=== PATIENT | male | born 1980 | race American Indian/Alaskan Native ===

== ENCOUNTER 2019-10-14 13:14 | Inpatient (IN) | payer OTHER ==
--- NOTE | 2019-10-14 13:24 | EDM.PDOC ---
ED HPI GENERAL MEDICAL PROBLEM - General Chief Complaint: General Stated Complaint: FEVER, KIDNEY PAIN, EXTREME THIRST Time Seen by Provider: 10/14/19 13:24 - History of Present Illness INITIAL COMMENTS - FREE TEXT/NARRATIVE: 39-year-old male presents the emergency room feeling severely dehydrated. The patient has been drinking lots of fluids and voiding excessively. He has some intermittent abdominal discomfort. This is been going on for the last couple of months is always present but sometimes varies in intensity. Patient is a strong family history of diabetes the patient is never been diagnosed with diabetes. Patient does not have any breathing difficulties shortness of breath or chest discomfort. Review of systems is not point to a precipitating factor. Bedside Accu-Chek is greater than 400. Bilateral Flank Pain Score (Numeric/FACES): 2 - Related Data Allergies Allergy/AdvReac Type Severity Reaction Status Date / Time Penicillins Allergy Rash Verified 10/14/19 14:08 ED ROS GENERAL - Review of Systems Review Of Systems: See Below Constitutional: Reports: Weakness, Fatigue, Other (States he felt hot last night but his temperature was normal on thermometer) HEENT: Reports: Throat Pain (Mild intermittent). Denies: No Symptoms Respiratory: Reports: No Symptoms Cardiovascular: Reports: No Symptoms Endocrine: Reports: Polydypsia, Polyuria GI/Abdominal: Reports: Abdominal Pain. Denies: Constipation, Diarrhea, Nausea, Vomiting : Reports: Frequency Musculoskeletal: Reports: No Symptoms Skin: Reports: No Symptoms Neurological: Reports: No Symptoms Psychiatric: Reports: No Symptoms Hematologic/Lymphatic: Reports: No Symptoms ED EXAM, GENERAL - Physical Exam Exam: See Below Exam Limited By: No Limitations General Appearance: Alert, No Apparent Distress, Other (Is mildly tachycardic shock index is mildly elevated at 1.74) Eye Exam: Bilateral Eye: Normal Inspection Ears: Normal External Exam, Normal Canal, Hearing Grossly Normal, Normal TMs Nose: Normal Inspection, Normal Mucosa, No Blood Throat/Mouth: Other (Significant tonsillar enlargement no significant erythema scant exudate) Head: Atraumatic, Normocephalic Neck: Normal Inspection, Supple, Non-Tender, Full Range of Motion Respiratory/Chest: No Respiratory Distress, Lungs Clear, Normal Breath Sounds Cardiovascular: Regular Rate, Rhythm, No Edema, No Murmur, Tachycardia (Held) GI/Abdominal: Normal Bowel Sounds, Soft, Non-Tender, Other (obese) Back Exam: Normal Inspection. 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PC] Stat Care 10/14/19 15:58 Ordered Intake and Output [RC] Q3HR Care 10/14/19 16:01 Active Oxygen Therapy [RC] PRN Care 10/14/19 15:58 Active Pulse Oximetry [RC] CONTINUOUS Care 10/14/19 16:01 Active Urinary Catheter Assessment [RC] ASDIRECTED Care 10/14/19 16:00 Active VTE/DVT Education [RC] PER UNIT ROUTINE Care 10/14/19 15:58 Active Vital Signs [RC] Q1HR Care 10/14/19 15:58 Active Consult to Diabetic Nurse Specialist [CONS] Routine Cons 10/14/19 15:58 Active Consult to Certified Personal Finance Counselor [CONS] Routine Cons 10/14/19 15:58 Active Respiratory Care Assess and Treatment [CONS] Routine Cons 10/14/19 15:58 Active Nothing Per Oral Diet [DIET] Diet 10/14/19 Breakfast Active Chest 1V Frontal [CR] Stat Exams 10/14/19 13:45 Taken BASIC METABOLIC PANEL,BMP [CHEM] Q4H Lab 10/14/19 15:58 Ordered BASIC METABOLIC PANEL,BMP [CHEM] Q4H Lab 10/14/19 20:00 Ordered BASIC METABOLIC PANEL,BMP [CHEM] Q4H Lab 10/15/19 00:00 Ordered BASIC METABOLIC PANEL,BMP [CHEM] Q4 Lab 10/15/19 04:00 Ordered BASIC METABOLIC PANEL,BMP [CHEM] Q4 Lab 10/15/19 08:00 Ordered BASIC METABOLIC PANEL,BMP [CHEM] Q4 Lab 10/15/19 12:00 Ordered BLOOD GAS ARTERIAL [BG] DAILY Lab 10/14/19 16:00 Ordered CBC WITH AUTO DIFF [HEME] AM Lab 10/15/19 05:11 Ordered CBC WITH AUTO DIFF [HEME] AM Lab 10/16/19 05:11 Ordered CBC WITH AUTO DIFF [HEME] AM Lab 10/17/19 05:11 Ordered CBC WITH AUTO DIFF [HEME] AM Lab 10/18/19 05:11 Ordered CBC WITH AUTO DIFF [HEME] Stat Lab 10/14/19 15:58 Ordered CULTURE STREP A CONFIRMATION [RM] Stat Lab 10/14/19 14:45 Results GLYCOSYLATED HEMOGLOBIN,HGBA1C [CHEM] Stat Lab 10/14/19 15:58 Ordered KETONES,BLOOD [CHEM] Q8 Lab 10/14/19 16:00 Ordered KETONES,BLOOD [CHEM] 8 Lab 10/15/19 00:00 Ordered KETONES,BLOOD [CHEM] 8 Lab 10/15/19 08:00 Ordered LIPID PANEL [CHEM] Stat Lab 10/14/19 15:58 Ordered MAGNESIUM [CHEM] 4 Lab 10/14/19 16:00 Ordered MAGNESIUM [CHEM] Formerly [facility] Lab 10/14/19 20:00 Ordered MAGNESIUM [CHEM] Former[facility] Lab 10/15/19 00:00 Ordered MAGNESIUM [CHEM] Formerly [facility] Lab 10/15/19 04:00 Ordered MAGNESIUM [CHEM] Formerly [facility] Lab 10/15/19 08:00 Ordered MAGNESIUM [CHEM] 4 Lab 10/15/19 12:00 Ordered PHOSPHORUS [CHEM] Formerly [facility] Lab 10/14/19 16:00 Ordered PHOSPHORUS [CHEM] Formerly [facility] Lab 10/14/19 20:00 Ordered PHOSPHORUS [CHEM] Formerly [facility] Lab 10/15/19 00:00 Ordered PHOSPHORUS [CHEM] Formerly [facility] Lab 10/15/19 04:00 Ordered PHOSPHORUS [CHEM] Formerly [facility] Lab 10/15/19 08:00 Ordered PHOSPHORUS [CHEM] Formerly [facility] Lab 10/15/19 12:00 Ordered Rapid Strep w/culture conf [STREP SCRN A RAPID W CULT Lab 10/14/19 14:45 Results CONF] [RM] Stat UA W/JIA RFLX IF INDICATED [URIN] Routine Lab 10/14/19 15:58 Ordered Dextrose 10% in Water 1,000 ml Med 10/14/19 16:00 Active IV ASDIRECTED Enoxaparin [Lovenox] Med 10/15/19 09:00 Active 40 mg SUBCUT DAILY Insulin Regular, Human [HumuLIN R] 100 unit Med 10/14/19 16:00 Active Sodium Chloride 0.9% [Normal Saline] 99 ml IV TITRATE Lactated Ringers [Ringers, Lactated] 1,000 ml Med 10/14/19 16:00 Active IV ASDIRECTED Lactated Ringers [Ringers, Lactated] 1,000 ml Med 10/14/19 16:00 Active IV ASDIRECTED Ondansetron [Zofran ODT] Med 10/14/19 15:58 Active 4 mg PO Q6H PRN Ondansetron [Zofran] Med 10/14/19 15:58 Active 4 mg IV Q6H PRN Resuscitation Status Routine Resus Stat 10/14/19 15:58 Ordered Medication Orders Enoxaparin Sodium (Lovenox) 40 mg SUBCUT DAILY KEI Dextrose/Water (Dextrose 10% In Water) 1,000 mls @ 40 mls/hr IV ASDIRECTED KEI Stop: 10/15/19 17:01 Insulin Human Regular 100 unit (/ Sodium Chloride) 100 mls @ 10.79 mls/hr IV TITRATE KEI; Protocol Lactated Ringer's (Ringers, Lactated) 1,000 mls @ 150 mls/hr IV ASDIRECTED KEI Lactated Ringer's (Ringers, Lactated) 1,000 mls @ 999 mls/hr IV ASDIRECTED KEI Stop: 10/15/19 17:01 Ondansetron HCl (Zofran Odt) 4 mg PO Q6H PRN PRN Reason: nausea, able to take PO Ondansetron HCl (Zofran) 4 mg IV Q6H PRN PRN Reason: Nausea/Vomiting Labs: Laboratory Tests 10/14/19 10/14/19 10/14/19 Range/Units 13:45 13:45 13:45 WBC (4.23-9.07) K/mm3 RBC (4.63-6.08) M/mm3 Hgb (13.7-17.5) gm/dl Hct (40.1-51.0) % MCV (79.0-92.2) fl MCH (25.7-32.2) pg MCHC (32.2-35.5) g/dl RDW Std Deviation (35.1-43.9) fL Plt Count (163-337) K/mm3 MPV (9.4-12.3) fl Neut % (Auto) (34.0-67.9) % Lymph % (Auto) (21.8-53.1) % [place] % (Auto) (5.3-12.2) % Eos % (Auto) (0.8-7.0) Baso % (Auto) (0.1-1.2) % Neut # (Auto) (1.78-5.38) K/mm3 Lymph # (Auto) (1.32-3.57) K/mm3 [place] # (Auto) (0.30-0.82) K/mm3 Eos # (Auto) (0.04-0.54) K/mm3 Baso # (Auto) (0.01-0.08) K/mm3 Manual Slide Review Puncture Site ABG pH (7.35-7.45) ABG pCO2 (35.0-45.0) mmHg ABG pO2 (80.0-100.0) mmHg ABG HCO3 (22.0-26.0) meq/L ABG O2 Saturation (96.0-97.0) % ABG Base Excess (-2-2.0) [place] Test O2 Delivery Device FiO2 (21.00-100.00) % Sodium 133 L (136-145) mEq/L Potassium 3.9 (3.5-5.1) mEq/L Chloride 97 L (98-107) mEq/L Carbon Dioxide 17 L (21-32) mEq/L Anion Gap 22.9 H (5-15) BUN 9 (7-18) mg/dL Creatinine 1.1 (0.7-1.3) mg/dL Est Cr Clr Drug Dosing 94.02 mL/min Estimated GFR (MDRD) > 60 (>60) mL/min BUN/Creatinine Ratio 8.2 L (14-18) Glucose 408 H (74-106) mg/dL POC Glucose (70-105) mg/dL Hemoglobin A1c (4.50-6.20) % Lactic Acid 1.7 (0.4-2.0) mmol/L Calcium 9.3 (8.5-10.1) mg/dL Phosphorus (2.6-4.7) mg/dL Magnesium (1.8-2.4) mg/dl Total Bilirubin 0.6 (0.2-1.0) mg/dL AST 47 H (15-37) U/L ALT 34 (16-63) U/L Alkaline Phosphatase 144 H (46-116) U/L Total Protein 8.9 H (6.4-8.2) g/dl Albumin 3.5 (3.4-5.0) g/dl Globulin 5.4 gm/dL Albumin/Globulin Ratio 0.7 L (1-2) Urine Color (Yellow) Urine Appearance (Clear) Urine pH (5.0-8.0) Ur Specific [place] (1.005-1.030) Urine Protein (Negative) Urine Glucose (UA) (Negative) Urine Ketones (Negative) Urine Occult Blood (Negative) Urine Nitrite (Negative) Urine Bilirubin (Negative) Urine Urobilinogen (0.2-1.0) Ur Leukocyte Esterase (Negative) Urine RBC (0-5) /hpf Urine WBC (0-5) /hpf Ur Squamous Epith Cells (0-5) /hpf Urine Bacteria (FEW) /hpf Urine Mucus (FEW) /hpf Ketones 3.67 (0.0-0.3) mM 10/14/19 10/14/19 10/14/19 Range/Units 13:45 13:45 13:45 WBC 6.72 (4.23-9.07) K/mm3 RBC 5.84 (4.63-6.08) M/mm3 Hgb 15.5 (13.7-17.5) gm/dl Hct 46.1 (40.1-51.0) % MCV 78.9 L (79.0-92.2) fl MCH 26.5 (25.7-32.2) pg MCHC 33.6 (32.2-35.5) g/dl RDW Std Deviation 42.7 (35.1-43.9) fL Plt Count 198 (163-337) K/mm3 MPV 11.6 (9.4-12.3) fl Neut % (Auto) 56.5 (34.0-67.9) % Lymph % (Auto) 25.4 (21.8-53.1) % [place] % (Auto) 16.8 H (5.3-12.2) % Eos % (Auto) 0.1 L (0.8-7.0) Baso % (Auto) 0.6 (0.1-1.2) % Neut # (Auto) 3.79 (1.78-5.38) K/mm3 Lymph # (Auto) 1.71 (1.32-3.57) K/mm3 [place] # (Auto) 1.13 H (0.30-0.82) K/mm3 Eos # (Auto) 0.01 L (0.04-0.54) K/mm3 Baso # (Auto) 0.04 (0.01-0.08) K/mm3 Manual Slide Review Abnormal smear Puncture Site ABG pH (7.35-7.45) ABG pCO2 (35.0-45.0) mmHg ABG pO2 (80.0-100.0) mmHg ABG HCO3 (22.0-26.0) meq/L ABG O2 Saturation (96.0-97.0) % ABG Base Excess (-2-2.0) Weston Test O2 Delivery Device FiO2 (21.00-100.00) % Sodium (136-145) mEq/L Potassium (3.5-5.1) mEq/L Chloride (98-107) mEq/L Carbon Dioxide (21-32) mEq/L Anion Gap (5-15) BUN (7-18) mg/dL Creatinine (0.7-1.3) mg/dL Est Cr Clr Drug Dosing mL/min Estimated GFR (MDRD) (>60) mL/min BUN/Creatinine Ratio (14-18) Glucose (74-106) mg/dL POC Glucose (70-105) mg/dL Hemoglobin A1c 11.40 H (4.50-6.20) % Lactic Acid (0.4-2.0) mmol/L Calcium (8.5-10.1) mg/dL Phosphorus 3.7 (2.6-4.7) mg/dL Magnesium 2.0 (1.8-2.4) mg/dl Total Bilirubin (0.2-1.0) mg/dL AST (15-37) U/L ALT (16-63) U/L Alkaline Phosphatase (46-116) U/L Total Protein (6.4-8.2) g/dl Albumin (3.4-5.0) g/dl Globulin gm/dL Albumin/Globulin Ratio (1-2) Urine Color (Yellow) Urine Appearance (Clear) Urine pH (5.0-8.0) Ur Specific [place] (1.005-1.030) Urine Protein (Negative) Urine Glucose (UA) (Negative) Urine Ketones (Negative) Urine Occult Blood (Negative) Urine Nitrite (Negative) Urine Bilirubin (Negative) Urine Urobilinogen (0.2-1.0) Ur Leukocyte Esterase (Negative) Urine RBC (0-5) /hpf Urine WBC (0-5) /hpf Ur Squamous Epith Cells (0-5) /hpf Urine Bacteria (FEW) /hpf Urine Mucus (FEW) /hpf Ketones (0.0-0.3) mM 10/14/19 10/14/19 10/14/19 Range/Units 13:48 14:12 14:43 WBC (4.23-9.07) K/mm3 RBC (4.63-6.08) M/mm3 Hgb (13.7-17.5) gm/dl Hct (40.1-51.0) % MCV (79.0-92.2) fl MCH (25.7-32.2) pg MCHC (32.2-35.5) g/dl RDW Std Deviation (35.1-43.9) fL Plt Count (163-337) K/mm3 MPV (9.4-12.3) fl Neut % (Auto) (34.0-67.9) % Lymph % (Auto) (21.8-53.1) % [place] % (Auto) (5.3-12.2) % Eos % (Auto) (0.8-7.0) Baso % (Auto) (0.1-1.2) % Neut # (Auto) (1.78-5.38) K/mm3 Lymph # (Auto) (1.32-3.57) K/mm3 [place] # (Auto) (0.30-0.82) K/mm3 Eos # (Auto) (0.04-0.54) K/mm3 Baso # (Auto) (0.01-0.08) K/mm3 Manual Slide Review Puncture Site Lt radial ABG pH 7.37 (7.35-7.45) ABG pCO2 27.4 L (35.0-45.0) mmHg ABG pO2 65.0 L (80.0-100.0) mmHg ABG HCO3 15.3 L (22.0-26.0) meq/L ABG O2 Saturation 94.7 L (96.0-97.0) % ABG Base Excess -8.0 L (-2-2.0) [place]on Test Positive O2 Delivery Device Room air FiO2 0.00 L (21.00-100.00) % Sodium (136-145) mEq/L Potassium (3.5-5.1) mEq/L Chloride (98-107) mEq/L Carbon Dioxide (21-32) mEq/L Anion Gap (5-15) BUN (7-18) mg/dL Creatinine (0.7-1.3) mg/dL Est Cr Clr Drug Dosing mL/min Estimated GFR (MDRD) (>60) mL/min BUN/Creatinine Ratio (14-18) Glucose (74-106) mg/dL POC Glucose 335 H (70-105) mg/dL Hemoglobin A1c (4.50-6.20) % Lactic Acid (0.4-2.0) mmol/L Calcium (8.5-10.1) mg/dL Phosphorus (2.6-4.7) mg/dL Magnesium (1.8-2.4) mg/dl Total Bilirubin (0.2-1.0) mg/dL AST (15-37) U/L ALT (16-63) U/L Alkaline Phosphatase (46-116) U/L Total Protein (6.4-8.2) g/dl Albumin (3.4-5.0) g/dl Globulin gm/dL Albumin/Globulin Ratio (1-2) Urine Color Light yellow (Yellow) Urine Appearance Clear (Clear) Urine pH 5.5 (5.0-8.0) Ur Specific [place] 1.025 (1.005-1.030) Urine Protein Negative (Negative) Urine Glucose (UA) 2+ H (Negative) Urine Ketones 3+ H (Negative) Urine Occult Blood Negative (Negative) Urine Nitrite Negative (Negative) Urine Bilirubin Negative (Negative) Urine Urobilinogen 0.2 (0.2-1.0) Ur Leukocyte Esterase Negative (Negative) Urine RBC 0-5 (0-5) /hpf Urine WBC 0-5 (0-5) /hpf Ur Squamous Epith Cells 0-5 (0-5) /hpf Urine Bacteria Occasional (FEW) /hpf Urine Mucus Few (FEW) /hpf Ketones (0.0-0.3) mM 10/14/19 10/14/19 Range/Units 15:16 15:46 WBC (4.23-9.07) K/mm3 RBC (4.63-6.08) M/mm3 Hgb (13.7-17.5) gm/dl Hct (40.1-51.0) % MCV (79.0-92.2) fl MCH (25.7-32.2) pg MCHC (32.2-35.5) g/dl RDW Std Deviation (35.1-43.9) fL Plt Count (163-337) K/mm3 MPV (9.4-12.3) fl Neut % (Auto) (34.0-67.9) % Lymph % (Auto) (21.8-53.1) % [place] % (Auto) (5.3-12.2) % Eos % (Auto) (0.8-7.0) Baso % (Auto) (0.1-1.2) % Neut # (Auto) (1.78-5.38) K/mm3 Lymph # (Auto) (1.32-3.57) K/mm3 [place] # (Auto) (0.30-0.82) K/mm3 Eos # (Auto) (0.04-0.54) K/mm3 Baso # (Auto) (0.01-0.08) K/mm3 Manual Slide Review Puncture Site ABG pH (7.35-7.45) ABG pCO2 (35.0-45.0) mmHg ABG pO2 (80.0-100.0) mmHg ABG HCO3 (22.0-26.0) meq/L ABG O2 Saturation (96.0-97.0) % ABG Base Excess (-2-2.0) [place] Test O2 Delivery Device FiO2 (21.00-100.00) % Sodium (136-145) mEq/L Potassium (3.5-5.1) mEq/L Chloride (98-107) mEq/L Carbon Dioxide (21-32) mEq/L Anion Gap (5-15) BUN (7-18) mg/dL Creatinine (0.7-1.3) mg/dL Est Cr Clr Drug Dosing mL/min Estimated GFR (MDRD) (>60) mL/min BUN/Creatinine Ratio (14-18) Glucose (74-106) mg/dL POC Glucose 318 H 307 H (70-105) mg/dL Hemoglobin A1c (4.50-6.20) % Lactic Acid (0.4-2.0) mmol/L Calcium (8.5-10.1) mg/dL Phosphorus (2.6-4.7) mg/dL Magnesium (1.8-2.4) mg/dl Total Bilirubin (0.2-1.0) mg/dL AST (15-37) U/L ALT (16-63) U/L Alkaline Phosphatase (46-116) U/L Total Protein (6.4-8.2) g/dl Albumin (3.4-5.0) g/dl Globulin gm/dL Albumin/Globulin Ratio (1-2) Urine Color (Yellow) Urine Appearance (Clear) Urine pH (5.0-8.0) Ur Specific [place] (1.005-1.030) Urine Protein (Negative) Urine Glucose (UA) (Negative) Urine Ketones (Negative) Urine Occult Blood (Negative) Urine Nitrite (Negative) Urine Bilirubin (Negative) Urine Urobilinogen (0.2-1.0) Ur Leukocyte Esterase (Negative) Urine RBC (0-5) /hpf Urine WBC (0-5) /hpf Ur Squamous Epith Cells (0-5) /hpf Urine Bacteria (FEW) /hpf Urine Mucus (FEW) /hpf Ketones (0.0-0.3) mM Meds: Medications Generic Name Dose Route Start Last Admin Trade Name Freq PRN Reason Stop Dose Admin Enoxaparin Sodium 40 mg 10/15/19 09:00 Lovenox SUBCUT DAILY KEI Dextrose/Water 1,000 mls @ 40 mls/hr 10/14/19 16:00 Dextrose 10% In Water IV 10/15/19 17:01 ASDIRECTED [facility] Insulin Human Regular 100 unit 100 mls @ 10.79 mls/hr 10/14/19 16:00 / Sodium Chloride IV TITRATE KEI Protocol 0.1 UNITS/KG/HR Lactated Ringer's 1,000 mls @ 150 mls/hr 10/14/19 16:00 Ringers, Lactated IV ASDIRECTED KEI Lactated Ringer's 1,000 mls @ 999 mls/hr 10/14/19 16:00 Ringers, Lactated IV 10/15/19 17:01 ASDIRECTED KEI Ondansetron HCl 4 mg 10/14/19 15:58 Zofran Odt PO Q6H PRN nausea, able to take PO Ondansetron HCl 4 mg 10/14/19 15:58 Zofran IV Q6H PRN Nausea/Vomiting Discontinued Medications Generic Name Dose Route Start Last Admin Trade Name Freq PRN Reason Stop Dose Admin Sodium Chloride 1,000 mls @ 999 mls/hr 10/14/19 13:50 10/14/19 14:07 Normal Saline IV 10/14/19 14:50 999 mls/hr ONETIME ONE Administration Sodium Chloride 1,000 mls @ 999 mls/hr 10/14/19 14:18 10/14/19 15:06 Normal Saline IV 10/14/19 15:18 999 mls/hr ONETIME ONE Administration Insulin Human Regular 10 unit 10/14/19 13:57 10/14/19 14:07 Humulin R IV 10/14/19 13:58 10 unit ONETIME ONE Administration - Re-Assessments/Exams Free Text/Narrative Re-Assessment/Exam: 10/14/19 16:23 Patient's case reviewed with Dr. Li who will assume care of the patient received IV fluids here in the emergency department labs ordered 10 units of regular insulin and routine labs for the situation the patient will be placed on admission for treatment of this Departure - Departure Time of Disposition: 16:25 Disposition: Admitted As Inpatient 67 Clinical Impression: Diabetes - Discharge Information Referrals: PCP,None [Primary Care Provider] - Forms: ED Department Discharge Sepsis Event Note - Focused Exam Vital Signs: Vital Signs Temp Pulse Pulse Resp BP BP Pulse Ox 10/14/19 16:16 94 120/74 97 10/14/19 16:15 87 99 10/14/19 16:01 95 131/85 97 10/14/19 16:00 82 97 10/14/19 15:46 91 131/80 97 10/14/19 15:45 89 96 10/14/19 15:31 90 121/84 97 10/14/19 15:30 95 96 10/14/19 15:16 91 120/83 96 10/14/19 15:15 87 96 10/14/19 15:01 97 131/98 H 98 10/14/19 15:00 92 96 10/14/19 14:46 101 H 127/91 H 97 10/14/19 14:45 96 97 10/14/19 14:31 105 H 124/95 H 95 10/14/19 14:30 101 H 96 10/14/19 14:16 100 136/96 H 96 10/14/19 14:15 100 97 10/14/19 14:00 99 97 10/14/19 13:47 98 124/99 H 96 10/14/19 13:46 107 H 97 10/14/19 13:45 95 96 10/14/19 13:42 98 96 10/14/19 13:25 36.9 C 104 H 20 140/107 H 97 Date Exam was Performed: 10/14/19 Time Exam was Performed: 16:23 - My Orders Last 24 Hours: My Active Orders 10/14/19 13:35 Blood Glucose Check, Bedside [RC] ONETIME 10/14/19 13:45 Chest 1V Frontal [CR] Stat 10/14/19 14:45 CULTURE STREP A CONFIRMATION [RM] Stat Rapid Strep w/culture conf [STREP SCRN A RAPID W CULT CONF] [] Stat - Assessment/Plan Last 24 Hours: My Active Orders 10/14/19 13:35 Blood Glucose Check, Bedside [RC] ONETIME 10/14/19 13:45 Chest 1V Frontal [CR] Stat 10/14/19 14:45 CULTURE STREP A CONFIRMATION [RM] Stat Rapid Strep w/culture conf [STREP SCRN A RAPID W CULT CONF] [] Stat
[2019-10-14] MEDS ORDERED: Sodium Chloride 0.9% 1,000 ML IV ONE ×2 (13:50→14:18)
[2019-10-14] MEDS ORDERED: Insulin Regular, Human 100 Units/ML 3 ML Vial IV ONE (13:57)
[2019-10-14 14:17] LABS: HEMOGLOBIN A1C 11.4 % (4.50-6.20)
[2019-10-14] MEDS ORDERED: Ondansetron 4 MG/2 ML SDV IV PRN (15:58)
[2019-10-14] MEDS ORDERED: Ondansetron 4 MG Tab.DIS PO PRN (15:58)
[2019-10-14] MEDS ORDERED: Lactated Ringers 1,000 ML IV SCH (16:00)
[2019-10-14] MEDS ORDERED: Dextrose 10% in Water 1,000 ML IV SCH (16:00)
[2019-10-14] MEDS: Lactated Ringers 1,000 ML IV SCH (18:49)
--- NOTE | 2019-10-14 20:01 | PCM.HP.2 ---
H&P History of Present Illness - General Date of Service: 10/14/19 Admit Problem/Dx: Admission Diagnosis/Problem Admission Diagnosis/Problem Diabetic ketoacidosis without coma - History of Present Illness Initial Comments - Free Text/Narative: This is a 39-year-old male without any past medical history who comes to the ED complaining of worsening polydipsia and polyuria for the past 2 months. As per patient around 2 months ago he started having polydipsia which eventually was associated to polyuria. This continued to get worse and was associated with worsening weight loss of approximately 50lbs as well as sensation of "being drunk". He decided to come in today after being convinced by daughters. Bilateral Flank Pain Score (Numeric/FACES): 0 - Related Data Allergies/Adverse Reactions: Allergies Allergy/AdvReac Type Severity Reaction Status Date / Time Penicillins Allergy Rash Verified 10/14/19 14:08 Past Medical History - Past Health History Medical/Surgical History: Denies Medical/Surgical History Musculoskeletal History: Reports: Back Pain, Chronic, Other (See Below) Other Musculoskeletal History: degenerated disc - Past Surgical History GI Surgical History: Reports: Cholecystectomy Social & Family History - Family History Endocrine/Metabolic: Reports: Diabetes, type II - Tobacco Use Smoking Status *Q: Never Smoker - Caffeine Use Caffeine Use: Reports: Soda - Recreational Drug Use Recreational Drug Use: No H&P Review of Systems - Review of Systems: Review Of Systems: See Below General: Reports: Malaise, Weakness, Fatigue. Denies: Fever, Chills, Night Sweats, Diaphoresis HEENT: Denies: Headaches, Post Nasal Drip, Sinus Congestion, Sore Throat, Vertigo Pulmonary: Denies: Shortness of Breath, Wheezing, Pleuritic Chest Pain, Cough, Sputum Cardiovascular: Denies: Chest Pain, Palpitations, Dyspnea on Exertion, Orthopnea , PND, Edema, Lightheadedness, Syncope Gastrointestinal: Reports: Anorexia, Decreased Appetite. Denies: Abdominal Pain , Black Stool, Bloody Stool, Constipation, Diarrhea, Difficulty Swallowing, Distension, Flatus Genitourinary: Reports: Frequency. Denies: Dysuria, Burning, Pain, Urgency, Incontinence, Hematuria Musculoskeletal: Denies: Joint Pain, Joint Swelling, Muscle Pain, Muscle Stiffness Skin: Denies: Cyanosis, Jaundice, Mottled, Pallor, Diaphoresis Psychiatric: Denies: Confusion, Depression, Mood Lability, Anxiety, Agitation Neurological: Denies: Confusion, Dizziness, Headache, Numbness Hematologic/Lymphatic: Denies: Anemia, Easy Bleeding Exam - Exam Exam: See Below - Vital Signs Vital Signs: Last Vital Signs Temp 98.7 F 10/14/19 17:30 Pulse 84 10/14/19 17:46 Resp 16 10/14/19 17:30 BP 146/90 H 10/14/19 17:46 Pulse Ox 96 10/14/19 17:46 Weight: 110.949 kg - Exam General: Alert, Oriented, Cooperative. No: Mild Distress HEENT: Conjunctiva Clear, EACs Clear, EOMI, Hearing Intact. No: Mucosa Moist & [place] Neck: Supple, Trachea Midline, +2 Carotid Pulse wo Bruit, Full Range of Motion. No: Lymphadenopathy Lungs: Clear to Auscultation, Normal Respiratory Effort. No: Crackles, Rales, Rhonchi, Rub, Wheezing Cardiovascular: Regular Rate, Regular Rhythm. No: Systolic Murmur, Diastolic Murmur, Rubs, Gallop/S3, Gallop/S4 GI/Abdominal Exam: Normal Bowel Sounds, Soft, Non-Tender, No Organomegaly, No Distention. No: Guarding, Rigid, Rebound Back Exam: Normal Inspection, Full Range of Motion. No: CVA Tenderness (L), CVA Tenderness (R) Extremities: Normal Inspection, Normal Range of Motion, Non-Tender, No Pedal Edema, Normal Capillary Refill Peripheral Pulses: 2+: Radial (L), Radial (R), Dorsalis Pedis (L), Dorsalis Pedis (R) Skin: Warm, Dry Neuro Extensive - Mental Status: Alert, Oriented x3 - Patient Data Result Diagrams: 10/14/19 13:45 10/14/19 13:45 Sepsis Event Note - Evaluation Sepsis Screening Result: No Definite Risk - Focused Exam Vital Signs: Vital Signs Temp Pulse Pulse Resp BP BP Pulse Ox 10/14/19 17:46 84 146/90 H 96 10/14/19 17:45 80 96 10/14/19 17:31 85 145/90 H 97 10/14/19 17:30 98.7 F 81 16 133/90 97 10/14/19 17:16 84 147/92 H 96 10/14/19 17:15 80 97 10/14/19 17:01 86 145/104 H 96 10/14/19 17:00 98.2 F 86 85 16 133/90 95 10/14/19 16:46 91 128/87 97 10/14/19 16:45 89 97 10/14/19 16:31 95 132/85 96 10/14/19 16:30 85 95 10/14/19 16:16 94 120/74 97 10/14/19 16:15 87 99 10/14/19 16:01 95 131/85 97 10/14/19 16:00 82 97 10/14/19 15:46 91 131/80 97 10/14/19 15:45 89 96 10/14/19 15:31 90 121/84 97 10/14/19 15:30 95 96 10/14/19 15:16 91 120/83 96 10/14/19 15:15 87 96 10/14/19 15:01 97 131/98 H 98 10/14/19 15:00 92 96 10/14/19 14:46 101 H 127/91 H 97 10/14/19 14:45 96 97 10/14/19 14:31 105 H 124/95 H 95 10/14/19 14:30 101 H 96 10/14/19 14:16 100 136/96 H 96 10/14/19 14:15 100 97 10/14/19 14:00 99 97 10/14/19 13:47 98 124/99 H 96 10/14/19 13:46 107 H 97 10/14/19 13:45 95 96 10/14/19 13:42 98 96 10/14/19 13:25 98.4 F 104 H 20 140/107 H 97 Date Exam was Performed: 10/14/19 Time Exam was Performed: 20:13 - Problem List (1) High anion gap metabolic acidosis SNOMED Code(s): 88251371 ICD Code: E87.2 - ACIDOSIS Status: Acute Current Visit: Yes (2) Hyperglycemia SNOMED Code(s): 76501977 ICD Code: R73.9 - HYPERGLYCEMIA, UNSPECIFIED Status: Acute Current Visit : Yes (3) Newly diagnosed diabetes SNOMED Code(s): 259918812, 102319444 ICD Code: E11.9 - TYPE 2 DIABETES MELLITUS WITHOUT COMPLICATIONS Status: Acute Current Visit: Yes (4) Elevated blood pressure reading SNOMED Code(s): 10224812 ICD Code: R03.0 - ELEVATED BLOOD-PRESSURE READING, W/O DIAGNOSIS OF HTN Status: Acute Current Visit: Yes (5) Ketonemia SNOMED Code(s): 514814460 ICD Code: R79.89 - OTHER SPECIFIED ABNORMAL FINDINGS OF BLOOD CHEMISTRY Status: Acute Current Visit: Yes (6) Respiratory alkalosis SNOMED Code(s): 402613255 ICD Code: E87.3 - ALKALOSIS Status: Acute Current Visit: Yes Problem List Initiated/Reviewed/Updated: Yes Assessment/Plan Comment:: Diabetic Ketoacidosis High anion gap metabolic acidosis Hyperglycemia Newly diagnosed diabetes mellitus, HbA1c 11.7 Respiratory alkalosis Worsening polydipsia and polyuria Never been seen by an MD PLAN - Insulin Drip - LR - Accu-checks q1h - BMP + Mg + PO4 every 4 hours - Ketones in blood every 8 hours - Daily ABGs - Stop insulin drip once anion gap is closed and ketones in blood are negative - Monitor anion gap - Start dextros IVF once glucose drops below 200 - NPO for now - perioperative educator Elevated blood pressure reading BP on admission 146/90 PLAN - Monitor BP with VS - Microalbumin in urine to evaluate need for ACEI PROPHYLAXIS DVT- compression socks GI- not indicated CODE STATUS: FULL CODE DISPOSITION: Patient will be admitted to ICU for insulin drip and DKA protocol management. - Mortality Measure Prognosis:: Good
[2019-10-14 22:48] LABS: HEMOGLOBIN A1C 12.7 % (4.50-6.20)
[2019-10-14] MEDS ORDERED: Magnesium Oxide 400 MG Tab PO ONE (23:08)
[2019-10-14] MEDS ORDERED: Potassium Chloride 20 MEQ Tab.ER PO ONE (23:08)
[2019-10-15] MEDS: Lactated Ringers 1,000 ML IV SCH ×4 (02:46→21:20)
[2019-10-15] MEDS ORDERED: Magnesium Sulfate/Water 4 GM in Premix Bag 1 BAG IV ONE (05:00)
--- NOTE | 2019-10-15 08:43 | PCM.PN ---
- General Info Date of Service: 10/15/19 Admission Dx/Problem (Free Text): Still on insulin drip Slept OK Ambulating to and from restroom - Patient Data Vitals - Most Recent: Last Vital Signs Temp 97.3 F 10/15/19 08:00 Pulse 63 10/15/19 08:00 Resp 16 10/15/19 08:00 BP 132/80 10/15/19 08:00 Pulse Ox 96 10/15/19 08:00 Weight - Most Recent: 68.084 kg - Exam General: Alert, Oriented, Cooperative, No Acute Distress HEENT: Pupils Equal, Pupils Reactive, EOMI, Mucous Membr. Moist/[place] Neck: Supple, Trachea Midline, No JVD, No Thyromegaly. No: Lymphadenopathy Lungs: Clear to Auscultation, Normal Respiratory Effort. No: Crackles, Rales, Rhonchi, Rub, Wheezing Cardiovascular: Regular Rate, Regular Rhythm. No: Murmurs, Gallops, Rubs GI/Abdominal Exam: Normal Bowel Sounds, Soft, Distended. No: Guarding, Rigid, Rebound, Tender Extremities: Normal Inspection, No Pedal Edema, Normal Capillary Refill Sepsis Event Note - Evaluation Sepsis Screening Result: No Definite Risk - Focused Exam Vital Signs: Vital Signs Temp Pulse Resp BP BP Pulse Ox 10/15/19 08:00 97.3 F 63 16 132/80 96 10/15/19 04:00 97.1 F 68 14 156/91 H 99 10/15/19 00:00 97.0 F 68 15 155/93 H 99 Date Exam was Performed: 10/16/19 Time Exam was Performed: 16:27 - Problem List & Annotations (1) High anion gap metabolic acidosis SNOMED Code(s): 30379830 Code(s): E87.2 - ACIDOSIS Status: Acute Current Visit: Yes (2) Hyperglycemia SNOMED Code(s): 80442121 Code(s): R73.9 - HYPERGLYCEMIA, UNSPECIFIED Status: Acute Current Visit: Yes (3) Newly diagnosed diabetes SNOMED Code(s): 416681497, 987271370 Code(s): E11.9 - TYPE 2 DIABETES MELLITUS WITHOUT COMPLICATIONS Status: Acute Current Visit: Yes (4) Elevated blood pressure reading SNOMED Code(s): 97559732 Code(s): R03.0 - ELEVATED BLOOD-PRESSURE READING, W/O DIAGNOSIS OF HTN Status: Acute Current Visit: Yes (5) Ketonemia SNOMED Code(s): 433831097 Code(s): R79.89 - OTHER SPECIFIED ABNORMAL FINDINGS OF BLOOD CHEMISTRY Status: Acute Current Visit: Yes (6) Respiratory alkalosis SNOMED Code(s): 195408796 Code(s): E87.3 - ALKALOSIS Status: Acute Current Visit: Yes - Problem List Review Problem List Initiated/Reviewed/Updated: Yes - Plan Plan:: Diabetic Ketoacidosis High anion gap metabolic acidosis Hyperglycemia Newly diagnosed diabetes mellitus, HbA1c 11.7 Respiratory alkalosis Worsening polydipsia and polyuria Never been seen by an MD Started on IV insulin drip on admission, rate has averaged 3u/hr Patient complaining of sore throat, with current clinical picture will do strep swab PLAN - Insulin Drip, checks q1h, scheduled BMP Mg and PO4 as well as ketones - Transition to long acting insulin + premeals and start diet once gap is closed and ketones are negative - personal development educator - Strep throat swab Elevated blood pressure reading BP trend 116-151/73-88 Microalbumin in urine negative Will continue to monitor to determine if he will need terminal carman treatment for HTN PLAN - Monitor BP PROPHYLAXIS DVT- compression socks GI- not indicated CODE STATUS: FULL CODE DISPOSITION: Patient will remain admitted to ICU for insulin drip and DKA protocol management.
[2019-10-15] MEDS: Enoxaparin 40 MG/0.4 ML Syringe SUBCUT SCH (08:51)
[2019-10-15] MEDS: Dextrose 5%-0.45% NaCl 1,000 ML IV SCH ×2 (08:59→21:20)
[2019-10-15] MEDS ORDERED: Potassium Phosphates 30 MMOLE in Sodium Chloride 0.9% 500 ML IV SCH (16:15)
--- NOTE | 2019-10-15 17:09 | CR ---
Chest: Portable view of the chest was obtained. Comparison: No prior chest imaging is available. Heart size and mediastinum are normal. Lungs are clear with no acute parenchymal change. Bony structures are unremarkable. Impression: 1. Nothing acute is appreciated on portable chest x-ray. Diagnostic code #1 This report was dictated in [place] Standard Time
[2019-10-15] MEDS ORDERED: Sodium Phosphate 30 MMOLE in Sodium Chloride 0.9% 250 ML IV ONE (18:35)
[2019-10-16] MEDS: Lactated Ringers 1,000 ML IV SCH ×2 (03:14→10:08)
[2019-10-16] MEDS: Insulin Glarg,Human.Rec.Analog 100 Unit/ML SUBCUT SCH (08:42)
[2019-10-16] MEDS: Enoxaparin 40 MG/0.4 ML Syringe SUBCUT SCH (08:42)
[2019-10-16] MEDS: Insulin Lispro 100 Units/ML 3 ML Vial SUBCUT SCH ×2 (11:07→16:54)
[2019-10-16] MEDS ORDERED: Lactated Ringers 1,000 ML IV ONE (13:27)
[2019-10-16] MEDS ORDERED: Lactated Ringers 500 ML IV ONE (13:28)
[2019-10-16] MEDS: Clindamycin HCl 150 MG Cap PO SCH (16:55)
[2019-10-17] MEDS ORDERED: Insulin Lispro 100 UNIT/ML 10 ML VIAL SUBCUT SCH
[2019-10-17] MEDS ORDERED: Insulin Glarg,Human.Rec.Analog 100 Unit/ML SUBCUT SCH
[2019-10-17] MEDS: Clindamycin HCl 150 MG Cap PO SCH ×3 (00:48→16:20)
[2019-10-17] MEDS: Insulin Lispro 100 Units/ML 3 ML Vial SUBCUT SCH ×3 (09:32→16:43)
[2019-10-17] MEDS: Insulin Glarg,Human.Rec.Analog 100 Unit/ML SUBCUT SCH (09:33)
[2019-10-17] MEDS: Enoxaparin 40 MG/0.4 ML Syringe SUBCUT SCH (09:33)
--- NOTE | 2019-10-17 16:36 | PCM.PN ---
- General Info Date of Service: 10/16/19 Subjective Update: Still on insulin drip Complaining of sore throat Slept OK Ambulating to and from restroom - Patient Data Vitals - Most Recent: Last Vital Signs Temp 98.0 F 10/17/19 15:00 Pulse 74 10/17/19 15:00 Resp 20 10/17/19 15:00 BP 140/74 10/17/19 15:00 Pulse Ox 99 10/17/19 15:00 Weight - Most Recent: 110.359 kg - Exam General: Alert, Oriented, Cooperative, No Acute Distress HEENT: Pupils Equal, Pupils Reactive, EOMI, Mucous Membr. Moist/[place] Neck: Supple, Trachea Midline, No JVD, No Thyromegaly Lungs: Clear to Auscultation, Normal Respiratory Effort. No: Crackles, Rales, Rhonchi, Wheezing Cardiovascular: Regular Rate, Regular Rhythm. No: Murmurs, Gallops, Rubs GI/Abdominal Exam: Normal Bowel Sounds, Soft, Non-Tender. No: Distended, Guarding, Rigid, Rebound Back Exam: Normal Inspection, Full Range of Motion. No: CVA Tenderness (L), CVA Tenderness (R) Extremities: Normal Inspection, Normal Range of Motion, No Pedal Edema, Normal Capillary Refill Sepsis Event Note - Evaluation Sepsis Screening Result: No Definite Risk - Focused Exam Vital Signs: Vital Signs Temp Pulse Resp BP Pulse Ox 10/17/19 15:00 98.0 F 74 20 140/74 99 10/17/19 09:40 97.6 F 68 18 133/76 95 Date Exam was Performed: 10/17/19 Time Exam was Performed: 16:37 - Problem List & Annotations (1) High anion gap metabolic acidosis SNOMED Code(s): 94733136 Code(s): E87.2 - ACIDOSIS Status: Acute Current Visit: Yes (2) Hyperglycemia SNOMED Code(s): 82678642 Code(s): R73.9 - HYPERGLYCEMIA, UNSPECIFIED Status: Acute Current Visit: Yes (3) Newly diagnosed diabetes SNOMED Code(s): 995951891, 042688029 Code(s): E11.9 - TYPE 2 DIABETES MELLITUS WITHOUT COMPLICATIONS Status: Acute Current Visit: Yes (4) Elevated blood pressure reading SNOMED Code(s): 69214492 Code(s): R03.0 - ELEVATED BLOOD-PRESSURE READING, W/O DIAGNOSIS OF HTN Status: Acute Current Visit: Yes (5) Ketonemia SNOMED Code(s): 766662534 Code(s): R79.89 - OTHER SPECIFIED ABNORMAL FINDINGS OF BLOOD CHEMISTRY Status: Acute Current Visit: Yes (6) Respiratory alkalosis SNOMED Code(s): 126181823 Code(s): E87.3 - ALKALOSIS Status: Acute Current Visit: Yes - Problem List Review Problem List Initiated/Reviewed/Updated: Yes - Plan Plan:: Diabetic Ketoacidosis High anion gap metabolic acidosis Hyperglycemia Newly diagnosed diabetes mellitus, HbA1c 11.7 Respiratory alkalosis Worsening polydipsia and polyuria Never been seen by an MD Started on IV insulin drip on admission, rate has averaged 3u/hr Patient complaining of sore throat, with current clinical picture will do strep swab PLAN - Insulin Drip, checks q1h, scheduled BMP Mg and PO4 as well as ketones - Transition to long acting insulin + premeals and start diet once gap is closed and ketones are negative - inclusion special educator - Strep throat swab Elevated blood pressure reading BP trend 129-151/73-88 Microalbumin in urine negative Will continue to monitor to determine if he will need senior living treatment for HTN PLAN - Monitor BP Group C strep pharyngitis Sore throat + strep swab--> allergic to PCN PLAN - Start Clindamycin PROPHYLAXIS DVT- compression socks GI- not indicated CODE STATUS: FULL CODE DISPOSITION: Patient will remain admitted to ICU for insulin drip and DKA protocol management.
--- NOTE | 2019-10-17 16:37 | PCM.DCSUM1 ---
Discharge Summary - Hospital Course HPI Initial Comments: This is a 39-year-old male without any past medical history who comes to the ED complaining of worsening polydipsia and polyuria for the past 2 months. As per patient around 2 months ago he started having polydipsia which eventually was associated to polyuria. This continued to get worse and was associated with worsening weight loss of approximately 50lbs as well as sensation of "being drunk". He decided to come in today after being convinced by daughters. Diagnosis: Stroke: No - Discharge Data Discharge Date: 10/17/19 Discharge Disposition: Home, Self-Care 01 Condition: Good - Referral to Home Health Primary Care Physician: PCP None - Discharge Diagnosis/Problem(s) (1) High anion gap metabolic acidosis SNOMED Code(s): 90541515 ICD Code: E87.2 - ACIDOSIS Status: Acute Current Visit: Yes (2) Hyperglycemia SNOMED Code(s): 48837579 ICD Code: R73.9 - HYPERGLYCEMIA, UNSPECIFIED Status: Acute Current Visit : Yes (3) Newly diagnosed diabetes SNOMED Code(s): 611524331, 448990706 ICD Code: E11.9 - TYPE 2 DIABETES MELLITUS WITHOUT COMPLICATIONS Status: Acute Current Visit: Yes (4) Elevated blood pressure reading SNOMED Code(s): 45461341 ICD Code: R03.0 - ELEVATED BLOOD-PRESSURE READING, W/O DIAGNOSIS OF HTN Status: Acute Current Visit: Yes (5) Ketonemia SNOMED Code(s): 591581851 ICD Code: R79.89 - OTHER SPECIFIED ABNORMAL FINDINGS OF BLOOD CHEMISTRY Status: Acute Current Visit: Yes (6) Respiratory alkalosis SNOMED Code(s): 401096167 ICD Code: E87.3 - ALKALOSIS Status: Acute Current Visit: Yes - Patient Summary/Data Consults: Consultations 10/14/19 15:58 Consult to Diabetic Nurse Specialist [CONS] Routine Consult to Campus Executive Director [CONS] Routine Respiratory Care Assess and Treatment [CONS] Routine Hospital Course: Admitted on insulin drip on DKA protocol to the ICU Transitioned to long acting and premeal insulin once gap closed Seen by nutrition educator and given instructions on how to use insulin During admission complained of sore throat, swab + strep group c Started on clindamycin due to PCN allergy - Patient Instructions Diet: Diabetic Diet - Discharge Plan *PRESCRIPTION DRUG MONITORING PROGRAM REVIEWED*: Not Applicable *COPY OF PRESCRIPTION DRUG MONITORING REPORT IN PATIENT TERRENCE: Not Applicable Prescriptions/Med Rec: clindamycin HCL [Cleocin] 300 mg PO Q8H #27 cap Insulin Glarg,Human.Rec.Analog [Lantus] 50 unit SUBCUT BEDTIME #15 ml Insulin Lispro [Humalog] 10 unit SUBCUT TIDMEALS #15 ml Home Medications: Home Meds Insulin Glarg,Human.Rec.Analog [Lantus] 50 unit SUBCUT BEDTIME #15 ml 10/17/19 [ Rx] Insulin Lispro [Humalog] 10 unit SUBCUT TIDMEALS #15 ml 10/17/19 [Rx] clindamycin HCL [Cleocin] 300 mg PO Q8H #27 cap 10/17/19 [Rx] Forms: ED Department Discharge Referrals: PCP,None [Primary Care Provider] - - Discharge Summary/Plan Comment DC Time >30 min.: Yes - General Info Date of Service: 10/17/19 Subjective Update: Feeling ok Tolerating diet Ambulating to and from restroom BM today - Patient Data Vitals - Most Recent: Last Vital Signs Temp 98.0 F 10/17/19 15:00 Pulse 74 10/17/19 15:00 Resp 20 10/17/19 15:00 BP 140/74 10/17/19 15:00 Pulse Ox 99 10/17/19 15:00 Weight - Most Recent: 110.359 kg - Exam Physical Findings Comments:: General: Alert, Oriented, Cooperative, No Acute Distress HEENT: Pupils Equal, Pupils Reactive, EOMI, Mucous Membr. Moist/[place] Neck: Supple, Trachea Midline, No JVD, No Thyromegaly Lungs: Clear to Auscultation, Normal Respiratory Effort. No: Crackles, Rales, Rhonchi, Wheezing Cardiovascular: Regular Rate, Regular Rhythm. No: Murmurs, Gallops, Rubs GI/Abdominal Exam: Normal Bowel Sounds, Soft, Non-Tender. No: Distended, Guarding, Rigid, Rebound Back Exam: Normal Inspection, Full Range of Motion. No: CVA Tenderness (L), CVA Tenderness (R) Extremities: Normal Inspection, Normal Range of Motion, No Pedal Edema, Normal Capillary Refill
== END 2019-10-17 17:10 | disposition home or self-care (01) | DRG 638 ==
LOC: JD.ED 13:14 → JD.ICU 15:58
PROVIDERS: ADMIT Internal Medicine; ATTEND Internal Medicine
DX: E11.9 Type 2 diabetes mellitus without complications (principal); E11.10 Type 2 diabetes mellitus with ketoacidosis without coma; E87.3 Alkalosis; J02.0 Streptococcal pharyngitis; G89.29 Other chronic pain; M54.9 Dorsalgia, unspecified; R03.0 Elevated blood-pressure reading, without diagnosis of hypertension; B95.4 Other streptococcus as the cause of diseases classified elsewhere; Z90.49 Acquired absence of other specified parts of digestive tract; Z88.0 Allergy status to penicillin
CPT/HCPCS: 36415; 36600; 71045; 80053; 81001; 82009; 82803; 82962 ×3; 83036; 83605; 83735; 84100; 85025; 87081; 87430; 96360; 96361; 99285; J1815; J7030 ×2; 80048; 80061; 82043; 99284; A9270-GY; J1650; J3475; J7042; J7050; J7120